=== PATIENT | female | born 1995 | race Caucasian/White ===

== ENCOUNTER 2018-06-23 08:58 | Day surgery (SDC) | payer OTHER ==
[2018-06-23] MEDS: DEXAMETHASONE 1 MG TAB PO (09:41)
[2018-06-23] MEDS: GABAPENTIN 300 MG CAP PO (09:41)
[2018-06-23] MEDS ORDERED: ROPIVACAINE 0.5 % 30 ML VIAL (10:28)
[2018-06-23] MEDS ORDERED: PROPOFOL 20 ML (10:28)
[2018-06-23] MEDS ORDERED: METOCLOPRAMIDE 10 MG INJ (10:28)
[2018-06-23] MEDS ORDERED: ONDANSETRON 4 MG INJ (10:28)
[2018-06-23] MEDS ORDERED: LIDOCAINE 2% (SDV) 5 ML INJ (10:28)
[2018-06-23] MEDS ORDERED: CEFAZOLIN 1 GM INJ (10:28)
[2018-06-23] MEDS ORDERED: MIDAZOLAM 1 MG/ML 2 ML INJ (10:33)
[2018-06-23] MEDS ORDERED: BUPIVACAINE 0.5%/EPI (SDV) 30 ML INJ (11:22)
[2018-06-23] MEDS ORDERED: TOBRAMYCIN 1.2 GM POWDER (11:22)
[2018-06-23] MEDS: CA CHLORIDE 10% 10 ML SYRINGE (11:23)
[2018-06-23] MEDS: POLYMYXIN/BACITRACIN 1L IRRIG (11:23)
[2018-06-23] MEDS: THROMBIN 5000 UNIT VIAL (11:23)
[2018-06-23] MEDS ORDERED: TRANEXAMIC ACID 1,000 MG in DEXTROSE 5% 100 ML IVPB (12:00)
[2018-06-23] MEDS ORDERED: BUPIVACAINE 0.5% (SDV) 30 ML, morphine SULFATE (PF) 8 MG, EPINEPHrine 0.3 MG, KETOROLAC... IRR (12:00)
[2018-06-23] MEDS ORDERED: CEFAZOLIN 2 GM/50 ML (PMX) 50 ML IVPB (12:00)
[2018-06-23] MEDS ORDERED: METOCLOPRAMIDE 10 MG INJ IV (12:30)
[2018-06-23] MEDS ORDERED: FENTAnyl 50 MCG/ML VIAL IV ×3 (12:30)
[2018-06-23] MEDS ORDERED: HYDROmorphONE 1 MG/5 ML IV SYRINGE IV (12:30)
[2018-06-23] MEDS ORDERED: MIDAZOLAM 1 MG/ML 2 ML INJ IV (12:30)
[2018-06-23] MEDS ORDERED: DIPHENHYDRAMINE 50 MG INJ IV (12:30)
[2018-06-23] MEDS ORDERED: OXYCODONE/ACETAMINOPHEN (5/325) TAB PO ×2 (12:30)
[2018-06-23] MEDS: ONDANSETRON 4 MG INJ IV (13:58)
[2018-06-23] MEDS: HYDROmorphONE 1 MG/5 ML IV SYRINGE IV ×2 (13:58→14:15)
[2018-06-23] MEDS: MEPERIDINE 25 MG INJ IV (13:59)
== END 2018-06-23 15:52 | disposition home or self-care (01) ==
LOC: SDS 08:58
DX: M25.311 Other instability, right shoulder (principal)
CPT/HCPCS: 23466; 84703; 86999

== ENCOUNTER 2018-06-24 22:54 | Emergency (ER) | payer OTHER ==
[2018-06-25] MEDS: ONDANSETRON (ODT) 4 MG TAB ODT (02:04)
[2018-06-25] MEDS: HYDROCODONE/APAP (10/325) TAB PO (02:13)
== END 2018-06-25 03:04 | disposition home or self-care (01) ==
LOC: FTE 22:54
DX: R11.2 Nausea with vomiting, unspecified (principal); M25.512 Pain in left shoulder
CPT/HCPCS: 99283; Z7610